=== PATIENT | male | born 1980 | race Caucasian/White ===

== ENCOUNTER 2017-02-14 19:23 | Emergency (ER) | payer SELFPAY ==
[2017-02-14 19:33] VITALS: BP 137/75
--- NOTE | 2017-02-14 20:45 | ER Document Report ---
ED Medical Screen (RME) - General Stated Complaint: RIGHT SIDE THROAT FEELS SWOLLEN Mode of Arrival: Ambulatory Information source: Patient Notes: Patient with sore throat for the past 2 days. hx: Prostatitis I have greeted and performed a rapid initial assessment of this patient. A comprehensive ED assessment and evaluation of the patient, analysis of test results and completion of the medical decision making process will be conducted by additional ED providers. Physical Exam - Vital signs Vitals: Temp Pulse Resp BP Pulse Ox 98.5 F 70 16 137/75 H 99 02/14/17 19:32 02/14/17 19:32 02/14/17 19:32 02/14/17 19:32 02/14/17 19:32 - HEENT Pharynx: Erythema, Exudate Course - Vital Signs Vital signs: Temp Pulse Resp BP Pulse Ox 98.5 F 70 16 137/75 H 99 02/14/17 19:32 02/14/17 19:32 02/14/17 19:32 02/14/17 19:32 02/14/17 19:32
== END 2017-02-15 01:52 | disposition left against medical advice (07) ==
LOC: ER 19:23
DX: J02.9 Acute pharyngitis, unspecified (principal); Z53.20 Procedure and treatment not carried out because of patient's decision for unspecified reasons
CPT/HCPCS: 99281

== ENCOUNTER 2018-08-10 13:29 | Emergency (ER) | payer SELFPAY ==
--- NOTE | 2018-08-10 14:17 | RADIOLOGY REPORT (SQ) ---
EXAM DESCRIPTION: FOOT LEFT COMPLETE COMPLETED DATE/TIME: 08/10/2018 2:06 pm REASON FOR STUDY: left foot injury COMPARISON: None. NUMBER OF VIEWS: Three views. TECHNIQUE: AP, lateral and oblique radiographic images acquired of the left foot. LIMITATIONS: None. FINDINGS: MINERALIZATION: Normal. BONES: No acute fracture or dislocation. No worrisome bone lesions. JOINTS: No effusions. SOFT TISSUES: Plantar calcaneal and dorsal forefoot soft tissue swelling. No foreign body. OTHER: No other significant finding. IMPRESSION: No acute fracture. Plantar calcaneal dorsal forefoot soft tissue swelling TECHNICAL DOCUMENTATION: JOB ID: [id number] [employer]- All Rights Reserved Reading location - IP/workstation name: [email or web address]
[2018-08-10] MEDS ORDERED: OXYCODONE-ACETAMINOPHEN 5-325 MG TABLET PO ONE (15:30)
[2018-08-10] MEDS ORDERED: HYDROCODONE/ACETAMINOPHEN 5-325 MG (6 TAB/ER DISP) PO PRN (15:31)
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
[2018-08-10 16:08] VITALS: BP 119/76
== END 2018-08-10 16:48 | disposition home or self-care (01) ==
LOC: ER 13:29
PROC: 2W3RX1Z Immobilization of Left Lower Leg using Splint (ICD-10-PCS; principal; 2018-08-10)
DX: S99.922A Unspecified injury of left foot, initial encounter (principal); M79.672 Pain in left foot; M25.572 Pain in left ankle and joints of left foot; W19.XXXA Unspecified fall, initial encounter; Y93.9 Activity, unspecified; Y92.9 Unspecified place or not applicable; Y99.9 Unspecified external cause status; Z65.5 Exposure to disaster, war and other hostilities; F17.200 Nicotine dependence, unspecified, uncomplicated
CPT/HCPCS: 99283

== ENCOUNTER 2018-09-08 14:42 | Emergency (ER) | payer SELFPAY ==
[2018-09-08 15:00] VITALS: BP 132/79
[2018-09-08] MEDS ORDERED: IBUPROFEN 800 MG TABLET PO ONE (15:24)
--- NOTE | 2018-09-08 15:26 | ER Document Report ---
HPI - HPI Pain Level: 2 Notes: Patient is a 38-year-old male who presents to the ED complaining of right posterior lateral hand pain status post injury 3 days ago. Patient states that he fell on his hand. Patient states that he started noticing swelling today. Pain does not radiate. He is otherwise eating and drinking without difficulties. Denies any drug use. No other concerns or complaints. Denies any headache, head injury, LOC, fever, URI, sore throat, chest pain, palpitations, syncope, cough, shortness of breath, wheeze, dyspnea, abdominal pain, nausea/vomiting/diarrhea, urinary retention, dysuria, hematuria, loss of control of bowel or bladder, numbness/tingling, muscle paralysis/weakness, or rash. - ROS Systems Reviewed and Negative: Yes All other systems reviewed and negative Past Medical History - Social History Smoking Status: Never Smoker Family History: Reviewed & Not Pertinent Renal/ Medical History: Denies: Hx Peritoneal Dialysis Vertical Provider Document - CONSTITUTIONAL Agree With Documented VS: Yes Notes: PHYSICAL EXAMINATION: GENERAL: Well-appearing, well-nourished and in no acute distress. LUNGS: Breath sounds clear to auscultation bilaterally and equal. No wheezes rales or rhonchi. HEART: Regular rate and rhythm without murmurs, rubs, gallops. Musculoskeletal: Rt hand: + mild swelling noted dorsally. No obvious erythema , ecchymosis, or deformity. + tenderness to the 1st and 2nd metacarpal area. No scaphoid tenderness. FROM to passive/active. Strength 4+/5 due to pain. N/ V intact distal. Extremities: No cyanosis, clubbing, or edema b/l. Peripheral pulses 2+. Capillary refill less than 3 seconds. NEUROLOGICAL: Normal speech, normal gait. Normal sensory, motor exams PSYCH: Normal mood, normal affect. SKIN: Warm, Dry, normal turgor, no rashes or lesions noted. - INFECTION CONTROL TRAVEL OUTSIDE OF THE [place] IN LAST 30 DAYS: No Course - Re-evaluation Re-evalutation: 09/08/18 16:05 Patient is an afebrile, well-hydrated, 38-year-old male who presents to the ED with right hand pain which I suspect to be inflammatory. Vitals are acceptable without any significant tachycardia, tachypnea, or hypoxia. PE is otherwise unremarkable for any neurovascular compromise, obvious tendon/ligament rupture, obvious fracture/dislocation, septic joint. X-ray was unremarkable for any acute pathology. Tylenol given PO. Patient is nontoxic-appearing. No other labs or imaging warranted at this time based on H&P. Conservative measures otherwise for symptoms. Recheck with your PCM in 3-5 days. Consider consult orthopedics. Return to the ED with any worsening/concerning symptoms otherwise as reviewed in discharge. Patient is in agreement. - Vital Signs Vital signs: Temp Pulse Resp BP Pulse Ox 97.9 F 80 16 132/79 H 98 09/08/18 14:58 09/08/18 14:58 09/08/18 14:58 09/08/18 14:58 09/08/18 14:58 Discharge - Discharge Clinical Impression: Right hand pain Condition: Stable Disposition: HOME, SELF-CARE Additional Instructions: Rest, Ice, Compression, Elevation Tylenol/ibuprofen as needed Light stretches daily Strength exercises as able Moist heat and massage may help F/u with your PCP in 3-5 days for a recheck Consider consult(s) with Orthopedics/physical therapy for ongoing/worsening symptoms Return to the ED with any worsening symptoms and/or development of fever, headache, chest pain, palpitations, syncope, shortness of breath, trouble breathing, abdominal pain, n/v/d, muscle weakness/paralysis, numbness/tingling, swelling, redness, or other worsening symptoms that are concerning to you. Forms: Elevated Blood Pressure Referrals: [facility] [Provider Group] - Follow up as needed
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
== END 2018-09-08 16:17 | disposition home or self-care (01) ==
LOC: ER 14:42
DX: M79.641 Pain in right hand (principal)
CPT/HCPCS: 99283; 73130; L3908

== ENCOUNTER 2018-12-16 15:01 | Emergency (ER) | payer MEDICAID ==
[2018-12-16 15:10] VITALS: BP 136/85
[2018-12-16] MEDS ORDERED: HYDROCODONE/ACETAMINOPHEN 5-325 MG TABLET PO ONE (16:44)
--- NOTE | 2018-12-16 16:44 | ER Document Report ---
HPI - HPI Time Seen by Provider: 12/16/18 16:14 Pain Level: 5 Notes: Patient is a 38-year-old male who presents with chief complaint of sternum pain. Patient reports he fell and landed on an iron chair with his sternum. He reports pain is worse with a deep breath. Past Medical History - General Information source: Patient - Social History Smoking Status: Current Every Day Smoker Frequency of alcohol use: None Drug Abuse: None Family History: Reviewed & Not Pertinent - Medical History Medical History: Negative Renal/ Medical History: Denies: Hx Peritoneal Dialysis Surgical Hx: Negative Vertical Provider Document - CONSTITUTIONAL Notes: PHYSICAL EXAMINATION: GENERAL: Well-appearing, well-nourished and in no acute distress. HEAD: Atraumatic, normocephalic. EYES: Pupils equal round extraocular movements intact, conjunctiva are normal. ENT: Nares patent NECK: Normal range of motion LUNGS: No respiratory distress, lung sounds clear and equal bilaterally, equal rise and fall of chest. Musculoskeletal: Normal range of motion, tenderness to palpation to sternum, no ecchymosis or erythema noted. No crepitus or deformity on palpation. NEUROLOGICAL: Normal speech, normal gait. PSYCH: Normal mood, normal affect. SKIN: Warm, Dry, normal turgor, no rashes or lesions noted. - INFECTION CONTROL TRAVEL OUTSIDE OF THE [place] IN LAST 30 DAYS: No Course - Re-evaluation Re-evalutation: Patient is without hypoxia or tachypnea. Chest x-ray is negative for any rib fractures. Sternum is not identified on the x-ray. I did discuss this with attending physician Dr. Hendricks. No indication at this time for additional imaging as patient's examination is normal and patient's vital signs are stable. Patient was discharged home with an incentive spirometer and given strict ED return precautions to include shortness of breath, difficulty breathing or hemoptysis. - Vital Signs Vital signs: Temp Pulse Resp BP Pulse Ox 98.2 F 97 18 136/85 H 99 12/16/18 15:08 12/16/18 15:08 12/16/18 15:08 12/16/18 15:08 12/16/18 15:08 Discharge - Discharge Clinical Impression: Contusion of sternum Qualifiers: Encounter type: initial encounter Qualified Code(s): S20.20XA - Contusion of thorax, unspecified, initial encounter Rib contusion Qualifiers: Encounter type: initial encounter Laterality: unspecified laterality Qualified Code(s): S20.219A - Contusion of unspecified front wall of thorax, initial encounter Condition: Stable Disposition: HOME, SELF-CARE Additional Instructions: Rib/Sternum Contusion You have been diagnosed as having bruised ribs and/or sternum. It will usually take a few weeks for these injured ribs to heal. You should cough or take a deep breath at least every hour or two to prevent lung complications. You should not engage in any strenuous physical activity until released by your physician. The usual rule is "if it hurts, don't do it." Return if you develop any of the following: (1) Fever or chills. (2) Persistent cough, coughing up blood, or shortness of breath. (3) Increasing pain. (4) Weakness, lightheadedness, or fainting.
--- NOTE | 2018-12-16 17:14 | RADIOLOGY REPORT (SQ) ---
EXAM DESCRIPTION: CHEST 2 VIEWS COMPLETED DATE/TIME: 12/16/2018 4:35 pm REASON FOR STUDY: sternal chest pain after falling onto chair COMPARISON: None. EXAM PARAMETERS: NUMBER OF VIEWS: two views TECHNIQUE: Digital Frontal and Lateral radiographic views of the chest acquired. RADIATION DOSE: NA LIMITATIONS: none FINDINGS: LUNGS AND PLEURA: No opacities, masses or pneumothorax. No pleural effusion. MEDIASTINUM AND HILAR STRUCTURES: No masses or contour abnormalities. HEART AND VASCULAR STRUCTURES: Heart normal size. No evidence for failure. BONES: No acute findings. HARDWARE: None in the chest. OTHER: No other significant finding. IMPRESSION: NO ACUTE RADIOGRAPHIC FINDING IN THE CHEST. The sternum is not visualize on the chest r adiograph. TECHNICAL DOCUMENTATION: JOB ID: [id number] [employer]- All Rights Reserved Reading location - IP/workstation name: [email or web address]
[2018-12-16] MEDS ORDERED: HYDROCODONE/ACETAMINOPHEN 5-325 MG (6 TAB/ER DISP) PO PRN (17:38)
== END 2018-12-16 17:52 | disposition home or self-care (01) ==
LOC: ER 15:01
DX: S20.219A Contusion of unspecified front wall of thorax, initial encounter (principal); W01.190A Fall on same level from slipping, tripping and stumbling with subsequent striking against furniture, initial encounter; F17.200 Nicotine dependence, unspecified, uncomplicated
CPT/HCPCS: 71046; 99283

== ENCOUNTER 2019-02-11 09:56 | Emergency (ER) | payer MEDICAID ==
[2019-02-11] MEDS ORDERED: DEXAMETHASONE 4 MG TABLET PO ONE (10:31)
[2019-02-11] MEDS ORDERED: LIDOCAINE 2% VISCOUS SOLN 20 ML UDCUP PO ONE (10:32)
[2019-02-11] MEDS ORDERED: ACETAMINOPHEN 325 MG TABLET PO ONE (10:32)
--- NOTE | 2019-02-11 10:33 | ER Document Report ---
HPI - HPI Patient complains to provider of: sore throat Time Seen by Provider: 02/11/19 10:22 Onset: Other - 3 wks Onset/Duration: Persistent Quality of pain: Achy Pain Level: 2 Context: Patient presents complaining of sore throat for the past 3 weeks with left ear pain. Patient denies any fever. Associated Symptoms: Earache, Sore throat. denies: Nonproductive cough, Fever, Vomiting Exacerbated by: Denies Relieved by: Denies Similar symptoms previously: Yes Recently seen / treated by doctor: No - ROS ROS below otherwise negative: Yes Systems Reviewed and Negative: Yes All other systems reviewed and negative - CONSTITUTIONAL Constitutional: DENIES: Fever - EENT EENT: REPORTS: Sore Throat, Ear Pain - RESPIRATORY Respiratory: DENIES: Trouble Breathing, Coughing - GASTROINTESTINAL Gastrointestinal: DENIES: Nausea, Patient vomiting - MUSCULOSKELETAL Musculoskeletal: DENIES: Neck Pain - DERM Skin Color: Normal Skin Problems: None Past Medical History - General Information source: Patient - Social History Smoking Status: Current Every Day Smoker Smoking Education Provided: Yes Frequency of alcohol use: None Drug Abuse: Marijuana 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 Denies: Hx Peritoneal Dialysis GI Medical History: Reports: Hx Gastroesophageal Reflux Disease Past Surgical History: Reports: Hx Oral Surgery, Hx Orthopedic Surgery - R leg, collar bone Vertical Provider Document - CONSTITUTIONAL Agree With Documented VS: Yes Exam Limitations: No Limitations General Appearance: WD/WN, No Apparent Distress - INFECTION CONTROL TRAVEL OUTSIDE OF THE [place] IN LAST 30 DAYS: No - HEENT HEENT: Atraumatic, Normocephalic, Pharyngeal Exudate, Pharyngeal Tenderness, Pharyngeal Erythema. negative: Tympanic Membrane Red, Tympanic Membrane Bulging - NECK Neck: Lymphadenopathy-Left, Lymphadenopathy-Right - RESPIRATORY Respiratory: Breath Sounds Normal, No Respiratory Distress - CARDIOVASCULAR Cardiovascular: Regular Rate, Regular Rhythm - BACK Back: Normal Inspection - MUSCULOSKELETAL/EXTREMETIES Musculoskeletal/Extremeties: MAEW, FROM - NEURO Level of Consciousness: Awake, Alert, Appropriate Motor/Sensory: No Motor Deficit - DERM Integumentary: Warm, Dry, No Rash Course - Re-evaluation Re-evalutation: 02/11/19 11:08 Patient's rapid strep test negative, no concern for mono. Patient able to manage his oral airway. No concern for GROUND LAYER. Patient nontoxic in appearance. Culture will be obtained. - Vital Signs Vital signs: Temp Pulse Resp BP Pulse Ox 97.7 F 96 14 130/91 H 100 02/11/19 10:00 02/11/19 10:00 02/11/19 10:00 02/11/19 10:00 02/11/19 10:00 - Laboratory Laboratory results interpreted by me: 02/11/19 11:09 Labs- Entire Visit 02/11/19 02/11/19 10:17 10:30 Monotest NEGATIVE Group A Strep Rapid NEGATIVE Discharge - Discharge Clinical Impression: Sore throat Condition: Stable Disposition: HOME, SELF-CARE Instructions: Sore Throat ([facility]) Additional Instructions: Return immediately for any new or worsening symptoms Followup with your primary care provider, call tomorrow to make a followup appointment Culture is pending, will call if you need any different treatment Prescriptions: Naproxen [Naprosyn 250 Nmg Tablet] 1 tab PO BID #14 tablet Forms: Smoking Cessation Education Referrals: [facility] [Provider Group] - Follow up as needed
[2019-02-11 11:24] VITALS: BP 121/78
== END 2019-02-11 11:19 | disposition home or self-care (01) ==
LOC: ER 09:56
DX: J02.9 Acute pharyngitis, unspecified (principal); H92.09 Otalgia, unspecified ear; F17.200 Nicotine dependence, unspecified, uncomplicated
CPT/HCPCS: 99283; 36415; 87070; 87880; 86308; J3490 ×3